=== PATIENT | male | born 1970 | race Caucasian/White ===

== ENCOUNTER 2017-04-24 00:01 | Emergency (ER) | payer SELFPAY ==
[~2017-04-24] VITALS: Ht 182.9 cm; Wt 89.0 kg
[2017-04-24 00:05] VITALS: BP 148/71; PULSE 78; RESP 16; TEMP 98.4; O2SAT 97
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
[2017-04-24 01:43] LABS: APTT (PATIENT) 26.5 SEC (24.3-30.1); PROTHROMBIN TIME - PATIENT 11.3 SEC (9.8-11.6)
[2017-04-24 01:44] LABS: BICARBONATE 27.5 MEQ/L (21.0-32.0)
--- NOTE | 2017-04-24 02:07 | RADRPT ---
EXAM DATE/TIME: 04/24/2017 02:00 [facility] COMPARISON: No previous studies available for comparison. INDICATIONS : Trauma, fell off ladder 3 days ago. Hit head. RADIATION DOSE: 58.99 CTDIvol (mGy) MEDICAL HISTORY : None SURGICAL HISTORY : None. ENCOUNTER: Initial ACUITY: 3 days PAIN SCALE: 3/10 LOCATION: cranial TECHNIQUE: Multiple contiguous axial images were obtained of the head. Using automated exposure control and adj ustment of the mA and/or kV according to patient size, radiation dose was kept as low as reasonably a chievable to obtain optimal diagnostic quality images. DICOM format image data is available electro nically for review and comparison. FINDINGS: CEREBRUM: The ventricles are normal for age. No evidence of midline shift, mass lesion, hemorrhage or acute in farction. No extra-axial fluid collections are seen. POSTERIOR FOSSA: The cerebellum and brainstem are intact. The 4th ventricle is midline. The cerebellopontine angle i s unremarkable. EXTRACRANIAL: The visualized portion of the orbits is intact. SKULL: The calvaria is intact. No evidence of skull fracture. CONCLUSION: Normal examination. Nash Vaughan Jr., MD on April 24, 2017 at 2:05 Board Certified Radiologist. This report was verified electronically.
[2017-04-24] MEDS ORDERED: IOHEXOL 350 MG/ML 10 ML VIAL (for RAD DIAG) IVCONTRAST ONE (02:09)
--- NOTE | 2017-04-24 02:25 | RADRPT ---
EXAM DATE/TIME: 04/24/2017 02:00 [facility] COMPARISON: No previous studies available for comparison. INDICATIONS : Trauma, fell off ladder 3 days ago. Hit head. RADIATION DOSE: 18.54 CTDIvol (mGy) MEDICAL HISTORY : None SURGICAL HISTORY : None. ENCOUNTER: Initial ACUITY: 3 days PAIN SCALE: 3/10 LOCATION: neck TECHNIQUE: Volumetric scanning of the cervical spine was performed. Multiplanar reconstructions in the sagittal, coronal and oblique axial planes were performed. Using automated exposure control and adjustment o f the mA and/or kV according to patient size, radiation dose was kept as low as reasonably achievable to obtain optimal diagnostic quality images. DICOM format image data is available electronically f or review and comparison. FINDINGS: VERTEBRAE: Normal vertebral body height. ALIGNMENT: No evidence of subluxation. C2-C3: The bony spinal canal is normal in size. No evidence of disc bulge or herniation. The neural forami na are bilaterally patent. C3-C4: The bony spinal canal is normal in size. No evidence of disc bulge or herniation. The neural forami na are bilaterally patent. C4-C5: A broad-based disc bulge. No central canal stenosis. Neural foraminal are patent. C5-C6: There is disc space narrowing with a broad-based disc osteophyte complex that flattens the ventral po rtion of the cord. Anterior to posterior dimension of the central canal is 8 mm. Narrowing of the gagandeep ral foramina and lateral recesses bilaterally. C6-C7: There is disc space narrowing with broad-based disc osteophyte complex eccentric to the right. Flatte altaf of the right ventral portion of the cord. Central canal measures 10 mm in the midline. Bony unco vertebral hypertrophy contributes to right lateral recess and to a lesser degree left lateral recess narrowing. High grade narrowing of the right neural foramen. Left is patent. C7-T1: The bony spinal canal is normal in size. No evidence of disc bulge or herniation. The neural forami na are bilaterally patent. CONCLUSION: 1. No fracture or dislocation. 2. Degenerative changes as detailed above. Nash Vaughan Jr., MD on April 24, 2017 at 2:21 Board Certified Radiologist. This report was verified electronically.
--- NOTE | 2017-04-24 02:28 | RADRPT ---
EXAM DATE/TIME: 04/24/2017 02:05 [facility] COMPARISON: No previous studies available for comparison. INDICATIONS : Trauma, fell off ladder 3 days ago. Complains of left flank pain. IV CONTRAST: 95 cc Omnipaque 350 (iohexol) IV ; Cumulative dose for multiple exams. ORAL CONTRAST: No oral contrast ingested. RADIATION DOSE: 12.79 CTDIvol (mGy) ; Combined studies - Thorax/Abdomen/Pelvis MEDICAL HISTORY : None SURGICAL HISTORY : None. ENCOUNTER: Initial ACUITY: 3 days PAIN SCALE: 5/10 LOCATION: Left flank TECHNIQUE: Volumetric scanning of the abdomen and pelvis was performed. Using automated exposure control and ad justment of the mA and/or kV according to patient size, radiation dose was kept as low as reasonably achievable to obtain optimal diagnostic quality images. DICOM format image data is available electro nically for review and comparison. FINDINGS: LOWER LUNGS: See the CT of the thorax dictated separately. LIVER: Homogeneous density without lesion. There is no dilation of the biliary tree. No calcified gallston es. SPLEEN: Normal size without lesion. PANCREAS: Within normal limits. KIDNEYS: Normal in size and shape. There is no mass, stone or hydronephrosis. 2 small cortical renal cysts on the right. ADRENAL GLANDS: Within normal limits. VASCULAR: There is no aortic aneurysm. BOWEL/MESENTERY: A surgically placed ring is seen around the GE junction. The stomach, small bowel, and colon demonstr ate no acute abnormality. There is no free intraperitoneal air or fluid. ABDOMINAL WALL: Within normal limits. RETROPERITONEUM: There is no lymphadenopathy. BLADDER: No wall thickening or mass. REPRODUCTIVE: Within normal limits. INGUINAL: There is no lymphadenopathy or hernia. MUSCULOSKELETAL: Within normal limits for patient age. CONCLUSION: 1. No acute abnormality. Nash Vaughan Jr., MD on April 24, 2017 at 2:24 Board Certified Radiologist. This report was verified electronically.
--- NOTE | 2017-04-24 02:32 | RADRPT ---
EXAM DATE/TIME: 04/24/2017 02:05 [facility] COMPARISON: No previous studies available for comparison. INDICATIONS : Trauma, fell off ladder 3 days ago. Complains of left sided chest pain. IV CONTRAST: 95 cc Omnipaque 350 (iohexol) IV ; Cumulative dose for multiple exams. RADIATION DOSE: 12.79 CTDIvol (mGy) ; Combined studies - Thorax/Abdomen/Pelvis MEDICAL HISTORY : None SURGICAL HISTORY : None. ENCOUNTER: Initial ACUITY: 3 days PAIN SCALE: 4/10 LOCATION: Left chest TECHNIQUE: Volumetric scanning of the chest was performed. Using automated exposure control and adjustment of t he mA and/or kV according to patient size, radiation dose was kept as low as reasonably achievable to obtain optimal diagnostic quality images. DICOM format image data is available electronically for review and comparison. Follow-up recommendations for detected pulmonary nodules are based at a minimum on nodule size and pa tient risk factors according to Fleischner Society Guidelines. FINDINGS: LUNGS: 2 nodular densities are seen involving the right middle lobe. These measure 6 mm and 7 mm respectivel y. Remaining lungs are clear. No infiltrates. No pneumothorax. A calcified granuloma within the right lung base. PLEURA: There is no pleural thickening or pleural effusion. MEDIASTINUM: The heart and great vessels demonstrate no acute abnormality. There is no mediastinal or hilar lymph adenopathy. AXILLAE: Within normal limits. No lymphadenopathy. SKELETAL: Within normal limits for patient age. MISCELLANEOUS: The visualized upper abdominal organs demonstrate no acute abnormality. CONCLUSION: 1. 2 pulmonary nodules involving the right middle lobe. Current guidelines suggest a repeat CT of the thorax in 3-6 months. 2. No acute intrathoracic abnormality. Nash Vaughan Jr., MD on April 24, 2017 at 2:27 Board Certified Radiologist. This report was verified electronically.
[2017-04-24] MEDS ORDERED: IBUP-232 PO (02:56)
--- NOTE | 2017-04-24 14:20 | EKG ---
Date Performed: 04/24/2017 Time Performed: 01:20:07 PTAGE: 46 years EKG: Sinus rhythm POSSIBLE RIGHT VENTRICULAR CONDUCTION DELAY BORDERLINE ECG NO PREVIOUS TRACING DOCTOR: Colin Watts Interpretating Date/Time 04/24/2017 14:19:21
== END 2017-04-24 03:49 | disposition home or self-care (01) ==
LOC: NEPC 00:01
DX: S20.219A Contusion of unspecified front wall of thorax, initial encounter (principal); R10.9 Unspecified abdominal pain; R91.1 Solitary pulmonary nodule; R94.31 Abnormal electrocardiogram [ECG] [EKG]; W11.XXXA Fall on and from ladder, initial encounter; Y93.H2 Activity, gardening and landscaping; Y92.007 Garden or yard of unspecified non-institutional (private) residence as the place of occurrence of the external cause; Z72.0 Tobacco use
CPT/HCPCS: 70450; 71260; 72125; 74177; 80048; 85610; 85730; 93005; 99285; Q9967